=== PATIENT | female | born 1995 | race African-American/Black ===

== ENCOUNTER 2023-05-02 09:04 | Emergency (ER) | payer MEDICARE, MEDICAID ==
[~2023-05-02] VITALS: Ht 170.2 cm; Wt 91.0 kg
[~2023-05-02 09:04] MED LIST: ALBU6.7H15 INH; MED4 MT
[2023-05-02 09:07] VITALS: BP 146/85; TEMP 98.5
[2023-05-02] MEDS ORDERED: IPRATROPIUM BROMIDE (0.02%) 0.5MG/2.5ML NEB HHN STA (09:12)
[2023-05-02] MEDS ORDERED: ALBUTEROL (0.083%) 2.5MG/3ML NEB HHN STA (09:12)
[2023-05-02] MEDS ORDERED: DEXAMETHASONE 4MG/ML 1ML VIAL IM ONE (09:15)
[2023-05-02 09:30] VITALS: PULSE 104; RESP 22; O2SAT 95
[2023-05-02] MEDS ORDERED: P50 MT (10:59)
[2023-05-02] MEDS ORDERED: ALBU6.7H15 INH (10:59)
== END 2023-05-02 12:11 | disposition home or self-care (01) ==
LOC: ER 09:22
DX: J45.901 Unspecified asthma with (acute) exacerbation (principal)
CPT/HCPCS: 99285; 94644; 96372; J1100